=== PATIENT | female | born 1955 | race Caucasian/White ===

== ENCOUNTER 2022-01-23 12:10 | Emergency (ER) | payer OTHER, MEDICARE, SELFPAY ==
[2022-01-23] VITALS (10 sets, daily range): BP systolic 151–173; BP diastolic 76–85; PULSE 82–96; RESP 16–18; TEMP 37; O2SAT 97–100
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
[2022-01-23] MEDS: CEFAZOLIN 2 GM/20 ML SYRINGE IV (12:51)
[2022-01-23] MEDS: MORPHINE 4 MG/ML INJ IV (12:51)
== END 2022-01-23 15:40 | disposition home or self-care (01) ==
PROVIDERS: Emergency Provider Emergency Medicine
DX: S71.112A Laceration without foreign body, left thigh, initial encounter (principal); V03.00XA Pedestrian on foot injured in collision with car, pick-up truck or van in nontraffic accident, initial encounter
CPT/HCPCS: 12004; 73552; 96374; 96375; 99283; 99284; J0690; J2270